=== PATIENT | female | born 1965 | race Caucasian/White ===

== ENCOUNTER 2021-06-03 11:53 | Inpatient (IN) | payer OTHER ==
--- OUTSIDE RECORDS SUMMARY | 2021-06-03 11:56 | XMS REPORT | Continuity of Care Document ---
:[address] [facility] t Address [address] [place] [address] Care Team Providers Name Role Phone Mavis Primary Care Physician Problems Condition Condition Condition Status Onset Resolution Last Treating Co mments Source Name Details Category Date Date Treatment Clinician Date R51 - Diagnosis Active 2015-102016-10-30 Mem oria HEADACHE 2-02 16:21:00 l I10 - R51 - 00:01: [place] ESSENTIAL HEADACHE 00 (PRIMARY) I10 - ESSENTIAL (PRIMARY) Active 09/19/2016 PRIYA [place] Allergies, Adverse Reactions, Alerts This patient has no known allergies or adverse reactions. Social History Social Habit Start Date Stop Date Quantity Comments Source Sex Assigned At [address] 1965 [facility] 00:00:00 00:00:00 Smoking Status Start Date Stop Date Source Unknown if ever smoked [facility] Medications This patient has no known medications. Procedures This patient has no known procedures. Plan of Care Planned Activity Planned Date Details Comments Source Future Scheduled Test INFLUENZA VACCINE [code [facility] = INFLUENZA VACCINE] Future Scheduled Test COVID-19 VACCINE (1) [facility] [code = COVID-19 VACCINE (1)] Future Scheduled Test Hepatitis C screening [facility] (procedure) [code = 774900946] Future Scheduled Test Screening for malignant [facility] neoplasm of cervix (procedure) [code = 287236946] Future Scheduled Test BREAST CANCER SCREENING [facility] [code = BREAST CANCER SCREENING] Future Scheduled Test COLONOSCOPY SCREENING [facility] [code = COLONOSCOPY SCREENING] Future Scheduled Test SHINGLES VACCINES (#1) [facility] [code = SHINGLES VACCINES (#1)] Encounters Start End Encounter Admission Attending Care Care Encounter Source Date/Time Date/Time Type Type Clinicians Facility Department ID 2017-04-06 2017-04-06 Outpatient IE [id number] 10:15:00 10:15:00 06 mandy Vann 2017-01-19 2017-01-19 Outpatient [facility] [id number] 10:30:00 10:30:00 05 mandy Vann 2016-09-19 2016-09-19 Outpatient MHIE IE [id number] [facility] 09:45:00 09:45:00 04 mandy Vann 2016-09-15 2016-09-15 Outpatient MHIE IE [id number] 15:00:00 15:00:00 03 mandy Vann 2016-04-28 2016-04-28 Outpatient [facility]IE [id number] [facility] 11:00:00 11:00:00 02 mandy Vann Results This patient has no known results.
--- NOTE | 2021-06-03 12:37 | RAD REPORT ---
EXAM DESCRIPTION: RAD - Chest Single View - 06/03/2021 12:30 pm CLINICAL HISTORY: covid +;COPD COMPARISON: Chest Pa And Lat (2 Views) dated 08/16/2019; Chest Single View dated 08/23/2017; CHEST SI NGLE VIEW dated 09/29/2012; CHEST SINGLE VIEW dated 12/27/2010 FINDINGS: Mild to moderate patchy bilateral airspace disease. The heart size is within normal limits .No acute osseous abnormality. No significant pleural effusions or pneumothorax. IMPRESSION: Mild to moderate patchy bilateral airspace disease concerning for multifocal pneumonia, including Covid-19 pneumonia.
[2021-06-03] MEDS ORDERED: ACETAMINOPHEN 500 MG TAB ONE (16:37)
[2021-06-03] MEDS ORDERED: METHYLPREDNISOLONE 125 MG INJ ONE (16:37)
[2021-06-03 16:50] LABS: Absolute Lymphocytes (CBC) 0.6 K/uL (0.7-4.9); Basophils % 0.2 % (0-1.3); Hematocrit 41.1 % (36.0-45.0); Lymphocytes % 8.5 % (15.3-44.8); MPV 8.6 fL (7.6-11.3); RBC Red Blood Cell Count 4.57 M/uL (3.86-4.86)
[2021-06-03 16:51] LABS: Protime INR 1.23
[2021-06-03 17:03] LABS: ALT/SGPT 38 U/L (12-78); AST/SGOT 46 U/L (15-37); Albumin 3.1 g/dL (3.4-5.0); Alkaline Phosphatase 97 U/L (45-117); BUN Blood Urea Nitrogen 10 mg/dL (7-18); Bicarbonate 29 mmol/L (21-32); Bilirubin Direct 0.1 mg/dL (0-0.2); Bilirubin Total 0.4 mg/dL (0.2-1.0); Ferritin 1292.7 ng/mL (8-388); Glucose Level 102 mg/dL (74-106); Lipase 84 U/L (73-393); Potassium 4.1 mmol/L (3.5-5.1); Protein, Total 7.6 g/dL (6.4-8.2); Sodium Level 138 mmol/L (136-145); Troponin (Emerg Dept Use Only) < 0.02 ng/mL (0.0-0.045)
[2021-06-03] MEDS ORDERED: NA CHLORIDE 0.9% 500 ML ONE (17:22)
--- NOTE | 2021-06-03 17:59 | EDPHYS ---
Physician Documentation [facility] Name: Florecita Stahl Age: 56 yrs Sex: Female : 1965 Arrival Date: 06/03/2021 Time: 12:00 Bed 15 Private MD: Sina [facility] ED Physician Gurjit Andino HPI: 06/03 14:58 This 56 yrs old Female presents to ER via Ambulatory with complaints of pm1 COVID+, Breathing Difficulty. 14:58 The patient has shortness of breath that occurred at home. Onset: The symptoms/episode pm1 began/occurred Patient with onset of Covid symptoms May 21. Patient with worsening shortness of breath onset 4 days ago. Duration: The symptoms are continuous, and are steadily getting worse. The patient's shortness of breath is aggravated by exertion, is alleviated by Using her father's supplemental oxygen for the past 2 days. Associated signs and symptoms: Pertinent positives: chest pain, hemoptysis, nausea, Diarrhea, Pertinent negatives: vomiting. Severity of symptoms: in the emergency department the symptoms are worse. The patient has not experienced similar symptoms in the past. Sent to the ER today for chest x-ray due to shortness of breath and hemoptysis. 4 days ago and onset of shortness of breath PCP prescribed patient azithromycin. Historical: - Allergies: 12:07 Morphine; ss - PMHx: 12:07 Hypertension; ss - Immunization history:: Client reports having NOT received the Covid vaccine. - Social history:: Smoking status: Patient denies any tobacco usage or history of. ROS: 14:58 Back: Negative for injury and pain, MS/Extremity: Negative for injury and deformity, pm1 Skin: Negative for injury, rash, and discoloration, Neuro: Negative for headache, weakness, numbness, tingling, and seizure. 14:58 Constitutional: Positive for poor PO intake, For the past 3 days. 14:58 Cardiovascular: Positive for chest pain, Palpitations with exertion. 14:58 Respiratory: Positive for cough, hemoptysis, shortness of breath. 14:58 Abdomen/GI: Positive for nausea, diarrhea, Negative for abdominal pain, vomiting. 14:58 All other systems are negative. Exam: 14:58 Constitutional: This is a well developed, well nourished patient who is awake, alert, pm1 and in no acute distress. Head/Face: Normocephalic, atraumatic. 14:58 Back: No spinal tenderness. No costovertebral tenderness. Full range of motion. Skin: Warm, dry with normal turgor. Normal color with no rashes, no lesions, and no evidence of cellulitis. MS/ Extremity: Pulses equal, no cyanosis. Neurovascular intact. Full, normal range of motion. 14:58 Eyes: Exam is negative for acute changes, Extraocular movements: no acute changes, Conjunctiva: no acute changes, no injection. 14:58 ENT: Exam is negative for acute changes, Mouth: Lips: normal, Oral mucosa: normal, pink and intact, moist. 14:58 Respiratory: the patient does not display signs of respiratory distress, Respirations: normal, Breath sounds: decreased breath sounds, are scattered, Patient on supplemental oxygenation with nasal cannula. 14:58 Abdomen/GI: Exam negative for acute changes, Inspection: abdomen appears normal, Palpation: abdomen is soft and non-tender, in all quadrants. 14:58 Neuro: Exam negative for acute changes, Orientation: is normal, Mentation: is normal, Motor: is normal, moves all fours. Vital Signs: 12:06 BP 176 / 104; Pulse 89; Resp 26; Temp 97.6(TE); Pulse Ox 88% on R/A; Weight 81.65 kg; ss Height 5 ft. 3 in. (160.02 cm); Pain 8/10; 17:05 BP 197 / 91; Pulse 84; Resp 22; Temp 100.1; Pulse Ox 92% on 2 lpm NC; ll1 17:19 Pulse Ox 94% on 3 lpm NC; ll1 19:03 BP 178 / 91; Pulse 81; Resp 22; Pulse Ox 94% on 3 lpm NC; ll1 12:06 Body Mass Index 31.89 (81.65 kg, 160.02 cm) ss MDM: 14:54 Patient medically screened. pm1 14:57 Data reviewed: vital signs. pm1 17:41 Data interpreted: Pulse oximetry: on 3L(s) per nasal canula, is 95 %. Interpretation: pm1 acceptable. 17:57 ED course: Christa the patient with Donaldo Dia whom accepted the patient to Dr. Sole mar service. . 06/03 14:25 Order name: OSWALD pm06/03 14:25 Order name: Blood Culture Adult (2) pm1 06/03 14:25 Order name: C-Reactive Protein; Complete Time: 17:05 pm1 06/03 14:25 Order name: CBC with Diff; Complete Time: 17:00 pm1 06/03 14:25 Order name: D-Dimer; Complete Time: 17:42 pm1 06/03 14:25 Order name: Ferritin; Complete Time: 17:05 pm1 06/03 14:25 Order name: Flu; Complete Time: 17:16 pm1 06/03 14:25 Order name: LFT's; Complete Time: 17:05 pm1 06/03 14:25 Order name: Lactate; Complete Time: 17:00 pm1 06/03 14:25 Order name: Lipase; Complete Time: 17:05 pm1 06/03 14:25 Order name: PT-INR; Complete Time: 17:42 pm1 06/03 14:25 Order name: Procalcitonin; Complete Time: 17:42 pm1 06/03 14:25 Order name: Ptt, Activated; Complete Time: 17:42 pm1 06/03 14:25 Order name: Strep; Complete Time: 17:16 pm1 06/03 14:25 Order name: Troponin (emerg Dept Use Only); Complete Time: 17:05 pm1 06/03 14:25 Order name: Urine Microscopic Only pm1 06/03 14:26 Order name: Basic Metabolic Panel; Complete Time: 17:05 EDMS 06/03 17:14 Order name: Throat Culture EDMS 06/04 02:46 Order name: D-Dimer EDMS 06/04 02:47 Order name: CBC with Automated Diff EDMS 06/04 03:13 Order name: Comprehensive Metabolic Panel EDMS 06/04 03:13 Order name: Lipid Profile EDMS 06/04 03:13 Order name: C-Reactive Protein EDMS 06/04 03:13 Order name: T4 Free EDMS 06/04 03:13 Order name: Magnesium EDMS 06/04 03:13 Order name: Thyroid Stimulating Hormone EDMS 06/04 03:13 Order name: Ferritin EDMS 06/04 03:21 Order name: Manual Differential EDMS 06/04 10:35 Order name: Urinalysis EDMS 06/04 11:15 Order name: Urine Microscopic Only EDMS 06/03 12:11 Order name: XRAY Chest (1 view); Complete Time: 14:01 ss 06/03 14:25 Order name: EKG; Complete Time: 14:26 pm1 06/03 14:25 Order name: Cardiac monitoring; Complete Time: 19:03 pm1 06/03 14:25 Order name: Droplet/Contact Precautions; Complete Time: 16:56 pm1 06/03 14:25 Order name: EKG - Nurse/Tech; Complete Time: 19:38 pm1 06/03 14:25 Order name: IV Start; Complete Time: 16:56 pm1 06/03 14:25 Order name: Labs collected and sent; Complete Time: 16:56 pm1 06/03 14:25 Order name: O2 Per Protocol; Complete Time: 16:56 pm1 06/03 14:25 Order name: O2 Sat Monitoring; Complete Time: 16:56 pm1 06/03 17:43 Order name: CT Chest For PE Angio; Complete Time: 18:43 jmm Administered Medications: 15:58 CANCELLED (Physician Discretion): Tylenol 1000 mg PO once pm1 16:26 Drug: SOLU-Medrol (methylPrednisoLONE) 125 mg Route: IVP; Site: left antecubital; ll1 17:50 Follow up: Response: No adverse reaction ll1 16:26 Drug: Tylenol 1000 mg Route: PO; ll1 17:50 Follow up: Response: No adverse reaction ll1 17:04 Drug: NS 0.9% 500 ml Route: IV; Rate: bolus; Site: left antecubital; ll1 17:49 Follow up: Response: No adverse reaction; IV Status: Completed infusion; IV Intake: ll1 500ml 17:49 Drug: Aspirin 325 mg Route: PO; ll1 18:17 Follow up: Response: No adverse reaction; RASS: Alert and Calm (0) ll1 19:41 Drug: Lisinopril 20 mg Route: PO; ms4 19:41 Follow up: Response: No adverse reaction ms4 06/04 03:52 Drug: Lopressor (metoprolol TARTRATE) 50 mg Route: PO; ms4 22:37 Follow up: Response: No adverse reaction bs2 Disposition Summary: 06/03/21 17:58 Hospitalization Ordered Hospitalization Status: Inpatient Admission jmm Provider: Leo Whipple Condition: Stable jmm Problem: new jmm Symptoms: are unchanged [facility] Bed/Room Type: Standard [facility] Location: Telemetry/MedSurg (Inpatient)(06/04/21 20:26) Room Assignment: 422(06/04/21 20:26) Diagnosis - COVID -19, Hypoxia [facility] Forms: - Medication Reconciliation Form jmm - SBAR form [facility] Addendum: 06/06/2021 07:10 Co-signature as Attending Physician, Gurjit Andino I agree with the assessment and plan s p3 of care. Signatures: Dispatcher [employer] EDMS Marielena Swift RN RN Bere Lock RN RN dw Abdulaziz Mcleod PA PA [facility] Virginia Cuevas RN RN ss Donaldo Dia, LAVENDER FARM WORKER-C [employer]ER FARM WORKER-Cla1 Som Holt, [employer] TRADER [employer] TRADER pm1 Kenia Torres RN RN ll1 Gurjit Andino sp3 Charisma Mendez RN RN ms4 Courtney Sanchez RN bs2 Corrections: (The following items were deleted from the chart) 06/03 15:58 15:57 Tylenol 1000 mg PO once ordered. pm1 pm1 19:50 17:58 Telemetry/MedSurg (Inpatient) [facility] 19:50 17:58 [facility] 06/04 20:26 06/03 19:50 [facility] ER HOLD [facility] 06/04 20:26 06/03 19:50 ERHOLD- [facility]
--- NOTE | 2021-06-03 17:59 | ER ---
Nurse's Notes [facility] Name: Florecita Stahl Age: 56 yrs Sex: Female : 1965 Arrival Date: 06/03/2021 Time: 12:00 Bed 15 Private MD: Matthias Andino Diagnosis: COVID -19, Hypoxia Presentation: 06/03 12:06 Chief complaint: Patient states: "My doctor sent me over here to get a chest XRAY ss because I have covid and I'm coughing up chunks of blood.". Coronavirus screen: Client presents with at least one sign or symptom that may indicate coronavirus-19. Ebola Screen: Patient denies exposure to infectious person. Patient denies travel to an Ebola-affected area in the 21 days before illness onset. Initial Sepsis Screen: Does the patient meet any 2 criteria? No. Patient's initial sepsis screen is negative. Does the patient have a suspected source of infection? No. Patient's initial sepsis screen is negative. Risk Assessment: Do you want to hurt yourself or someone else? Patient reports no desire to harm self or others. Onset of symptoms was May 21, 2021. 12:06 Method Of Arrival: Ambulatory ss 12:06 Acuity: ISAIAH 2 ss Historical: - Allergies: 12:07 Morphine; ss - PMHx: 12:07 Hypertension; ss - Immunization history:: Client reports having NOT received the Covid vaccine. - Social history:: Smoking status: Patient denies any tobacco usage or history of. Screenin:05 Abuse screen: Denies threats or abuse. Nutritional screening: No deficits noted. ll1 Tuberculosis screening: No symptoms or risk factors identified. Fall Risk IV access (20 points). Gait- Weak (10 pts.). Total Trammell Fall Scale indicates Low Risk Score (25-44 pts). Fall prevention measures have been instituted. Side Rails Up X 2 Frequent Obs/Assesments occuring As available Patient and Family Educated on Fall Prevention Program and strategies. Assessment: 17:05 General: Appears ill, Behavior is calm, cooperative, appropriate for age. Pain: ll1 Complains of pain in back Pain currently is 9 out of 10 on a pain scale. Quality of pain is described as aching. Neuro: No deficits noted. Cardiovascular: Heart tones S1 S2 Capillary refill < 3 seconds Clubbing of nail beds is absent Patient's skin is warm and dry. Rhythm is regular. Respiratory: Airway is patent Trachea midline Respiratory effort is even, labored, Respiratory pattern is regular, tachypnea Breath sounds are diminished bilaterally. the patient has mild shortness of breath. GI: No deficits noted. 18:05 Reassessment: No changes from previously documented assessment. Patient and/or family ll1 updated on plan of care and expected duration. Pain level reassessed. Patient is alert, oriented x 3, equal unlabored respirations, skin warm/dry/pink. Vital Signs: 12:06 BP 176 / 104; Pulse 89; Resp 26; Temp 97.6(TE); Pulse Ox 88% on R/A; Weight 81.65 kg; ss Height 5 ft. 3 in. (160.02 cm); Pain 8/10; 17:05 BP 197 / 91; Pulse 84; Resp 22; Temp 100.1; Pulse Ox 92% on 2 lpm NC; ll1 17:19 Pulse Ox 94% on 3 lpm NC; ll1 19:03 BP 178 / 91; Pulse 81; Resp 22; Pulse Ox 94% on 3 lpm NC; ll1 12:06 Body Mass Index 31.89 (81.65 kg, 160.02 cm) ss ED Course: 12:00 Patient arrived in ED. mr 12:00 Matthias Andino DO is Private Physician. mr 12:07 Triage completed. ss 12:07 Arm band placed on left wrist. ss 12:30 XRAY Chest (1 view) In Process Unspecified. EDMS 12:45 X-ray completed. md1 12:45 Note: Pt has family member (father) in room 12. Per [place] in triage, OK'd to allow md1 patient to wait in family members room for the duration of her wait from the lobby. . 14:24 Som Holt, HILARIO is PHCP. pm1 14:24 Gurjit Andino is Attending Physician. pm1 16:30 Inserted saline lock: 20 gauge in left antecubital area, using aseptic technique. Blood ll1 collected. 16:56 Kenia Torres, JOSLYN is Primary Nurse. ll1 17:05 Patient has correct armband on for positive identification. Bed in low position. Call ll1 light in reach. Side rails up X 1. child support case officer on. Pulse ox on. NIBP on. 17:41 PHCP role handed off by Som Holt NP [facility] 17:41 Abdulaziz Mcleod PA is PHCP. [facility] 17:57 Leo Whipple MD is Hospitalizing Provider. [facility] 18:26 CT Chest For PE Angio In Process Unspecified. EDMS 19:30 Primary Nurse role handed off by Kenia Torres RN mw2 06/04 22:32 Courtney Sanchez, JOSLYN is Primary Nurse. bs2 Administered Medications: 06/03 15:58 CANCELLED (Physician Discretion): Tylenol 1000 mg PO once pm1 16:26 Drug: SOLU-Medrol (methylPrednisoLONE) 125 mg Route: IVP; Site: left antecubital; ll1 17:50 Follow up: Response: No adverse reaction ll1 16:26 Drug: Tylenol 1000 mg Route: PO; ll1 17:50 Follow up: Response: No adverse reaction ll1 17:04 Drug: NS 0.9% 500 ml Route: IV; Rate: bolus; Site: left antecubital; ll1 17:49 Follow up: Response: No adverse reaction; IV Status: Completed infusion; IV Intake: ll1 500ml 17:49 Drug: Aspirin 325 mg Route: PO; ll1 18:17 Follow up: Response: No adverse reaction; RASS: Alert and Calm (0) ll1 19:41 Drug: Lisinopril 20 mg Route: PO; ms4 19:41 Follow up: Response: No adverse reaction ms4 06/04 03:52 Drug: Lopressor (metoprolol TARTRATE) 50 mg Route: PO; ms4 22:37 Follow up: Response: No adverse reaction bs2 Intake: 06/03 17:49 IV: 500ml; Total: 500ml. ll1 Outcome: 17:58 Decision to Hospitalize by Provider. [facility] 06/04 23:28 Patient left the ED. mw2 Signatures: Dispatcher [employer] EDMS Abdulaziz Mcleod PA PA [facility] FieldsLizzette Ruthann Gallegosby, RN RN ss Som Holt NP MECHANICAL APPLICATIONS ENGINEER pm1 Raghu Reid mw2 Charisma Card md1 Kenia Torres RN RN ll1 Courtney Sanchez RN RN bs2 Vanessa, Charisma, RN RN ms4 Corrections: (The following items were deleted from the chart) 06/03 12:49 12:46 pt has family member (father) in Room 12. Per [place] in triage, OK'd to put pt in md1 room with her family member for the duration of her wait from the lobby. md1
[2021-06-03] MEDS ORDERED: ASPIRIN 325 MG TAB ONE (18:05)
--- NOTE | 2021-06-03 18:37 | RAD REPORT ---
EXAM DESCRIPTION: CT - Chest For Pe Angio - 06/03/2021 6:26 pm CLINICAL HISTORY: Chest pain. covid, hemoptysis COMPARISON: CTANGIO CHEST FOR PE dated 03/22/2008 TECHNIQUE: CT angiogram of the pulmonary arteries was performed with MIP. All CT scans are performed using dose optimization technique as appropriate and may include automated exposure control or mA/KV adjustment according to patient size. FINDINGS: No evidence of pulmonary thromboembolism. No acute aortic finding demonstrated. Moderate to severe confluent bilateral alveolar lung opacities are present, greatest in the periphery and lower lobes most compatible with underlying COVID-19 infection. No significant pericardial or pleural fluid. No concerning bony finding. IMPRESSION: No evidence of pulmonary thromboembolism. Moderate to severe COVID-19 infection pulmonary findings.
--- NOTE | 2021-06-03 19:00 | P.HP ---
Certification for Inpatient Patient admitted to: Inpatient With expected LOS: >2 Midnights Patient will require the following post-hospital care: None Practitioner: I am a practitioner with admitting privileges, knowledge of patient current condition, hospital course, and medical plan of care. Services: Services provided to patient in accordance with Admission requirements found in Title 42 Section 412.3 of the Code of Federal Regulations Patient History Date of Service: 06/03/21 Reason for admission: COVID-19 pneumonia History of Present Illness: 56-year-old female with history of hypertension presents the emergency department for shortness of breath, hemoptysis. Patient reports testing positive for Covid on 05/27/2021, began with mild hemoptysis on 05/31/2021. Patient not vaccinated. Patient reports increasing shortness of breath over the course of last few days noted to be hypoxic to 64% on room air at home. Patient was evaluated in the emergency department, labs were significant for D-dimer 1464 ferritin 1292 C-reactive protein 329. Patient was given IV steroids had CT PE protocol which was negative for pulmonary bruising demonstrated moderate COVID-19 pneumonia. Patient requiring nasal cannula around 4 to 5 L at this time to maintain saturations greater 90%. ED provider wishes to admit for further evaluation and management. Allergies morphine Adverse Reaction (Severe, Verified 09/29/12 16:25) Shortness of breath Home Medications: Amlodipine Besylate [Norvasc] 5 mg PO DAILY #30 tablet 09/30/12 Meclizine HCl [Antivert] 25 mg PO Q8HP PRN #30 tablet 09/30/12 Pravastatin [Pravachol*] 09/30/12 Amox/Clavulanate [Augmentin 875-125 Tab*] 1 tab PO BID #0 tab 10/02/12 Clonazepam [Klonopin] 0.5 mg PO Q12H PRN #0 tablet 10/02/12 Methylprednisolone [Medrol] 2 mg PO DAILY #0 tablet 10/02/12 - Past Medical/Surgical History Diabetic: No -: Hypertension -: x2 Psychosocial/ Personal History: Lives with father, . - Family History Father -: Lung disease - Social History Smoking Status: Never smoker Alcohol use: No CD- Drugs: No Caffeine use: Yes Place of Residence: Home Review of Systems 10-point ROS is otherwise unremarkable Respiratory: Cough, Dry, Shortness of Breath, Hemoptysis, As per HPI Physical Examination - Physical Exam General: Alert, In no apparent distress, Oriented x3 HEENT: Atraumatic, PERRLA, Mucous membr. moist/pink, EOMI, Sclerae nonicteric Neck: Supple, 2+ carotid pulse no bruit, No LAD, Without JVD or thyroid abnormality Respiratory: Diminished, Other (Dyspnea, tachypnea) Cardiovascular: Regular rate/rhythm, Normal S1 S2 Capillary refill: <2 Seconds Gastrointestinal: Normal bowel sounds, No tenderness Musculoskeletal: No tenderness Integumentary: No rashes Neurological: Normal gait, Normal speech, Normal strength at 5/5 x4 extr, Normal tone, Normal affect Lymphatics: No axilla or inguinal lymphadenopathy - Studies Laboratory Data (last 24 hrs) 06/03/21 16:10: PT 14.2 H, INR 1.23, APTT 30.8 06/03/21 16:10: WBC 6.80, Hgb 14.2, Hct 41.1, Plt Count 279 06/03/21 16:10: Sodium 138, Potassium 4.1, BUN 10, Creatinine 0.59, Glucose 102, Total Bilirubin 0.4, AST 46 H, ALT 38, Alkaline Phosphatase 97, Lipase 84 Microbiology Data (last 24 hrs): 06/03/21 16:10 Throat Group A Streptococcus Rapid Screen - Final 06/03/21 16:10 Nasopharnyx Influenza Type A Antigen Screen - Final 06/03/21 16:10 Nasopharnyx Influenza Type B Antigen Screen - Final Assessment and Plan - Plan Assessment: Acute hypoxic respiratory failure secondary to COVID-19 pneumonia complicated with mild hemoptysis Hypertension Plan: Acute hypoxic respiratory failure secondary to COVID-19 pneumonia complicated with mild hemoptysis: Continue with IV steroids, ivermectin, baricitinib, supplements. Pulmonology consulted, supplemental oxygen as needed. Patient not vaccinated. CT negative for PE, will continue with Lovenox 40 subcu twice daily and advance to full anticoagulation as tolerated in regards to hemoptysis. Appreciate further input from pulmonology. Hypertension: Continue medications. Adjust as necessary patient reports blood pressure runs very high at home. Will continue lisinopril 20 mg daily which is what patient reports that she takes at home, may need dose adjustment or additional medications. DVT PPX: Lovenox 40 subcu twice daily Code status: Full Discharge Plan: Home Plan to discharge in: Greater than 2 days - Advance Directives Does patient have a Living Will: No Does patient have a Durable POA for Healthcare: No - Code Status/Comfort Care Code Status Assessed: Yes (Full code) Critical Care: No Time Spent Managing Pts Care (In Minutes): 55
[2021-06-03] MEDS ORDERED: lisinopriL 20 MG TAB ONE (20:02)
[2021-06-03 21:43] VITALS: BMI 29.9
[2021-06-03] MEDS: METHYLPREDNISOLONE 40 MG INJ IV SCH (21:43)
[2021-06-03] MEDS ORDERED: MELATONIN 5 MG TABLET PO PRN (21:43)
[2021-06-03] MEDS ORDERED: BENZONATATE 100 MG CAP PO PRN (21:43)
[2021-06-03] MEDS: ENOXAPARIN 40 MG/0.4 ML SQ SCH (21:43)
[2021-06-03] MEDS: ASCORBIC ACID 500 MG TABLET PO SCH (21:43)
[2021-06-03 22:06] LABS: Urine Bacteria <20 /HPF (<20); Urine RBC <5 /HPF (NONE SEEN)
[2021-06-03] MEDS: HYDRALAZINE HCL 20 MG/ML VIAL IV PRN (22:53)
[2021-06-03] MEDS ORDERED: ENOXAPARIN 40 MG/0.4 ML SQ ONE (23:08)
[2021-06-03] MEDS ORDERED: ASCORBIC ACID 500 MG TABLET ONE (23:08)
[2021-06-03] MEDS ORDERED: METHYLPREDNISOLONE 40 MG INJ ONE (23:08)
[2021-06-03] MEDS ORDERED: HYDRALAZINE HCL 20 MG/ML VIAL ONE (23:19)
[2021-06-04 02:40] LABS: Absolute Lymphocytes (CBC) 0.6 K/uL (0.7-4.9); Basophils % 0.2 % (0-1.3); Hematocrit 41.2 % (36.0-45.0); Lymphocytes % 10.1 % (15.3-44.8); MPV 8.7 fL (7.6-11.3); RBC Red Blood Cell Count 4.54 M/uL (3.86-4.86)
[2021-06-04 03:12] LABS: ALT/SGPT 40 U/L (12-78); AST/SGOT 38 U/L (15-37); Albumin 2.6 g/dL (3.4-5.0); Alkaline Phosphatase 91 U/L (45-117); BUN Blood Urea Nitrogen 12 mg/dL (7-18); Bicarbonate 28 mmol/L (21-32); Bilirubin Total 0.3 mg/dL (0.2-1.0); Ferritin 1267.3 ng/mL (8-388); Glucose Level 202 mg/dL (74-106); HDL Cholesterol 39 mg/dL (40-60); LDL Cholesterol, Calculated 141 (<130); Magnesium 2.5 mg/dL (1.8-2.4); Sodium Level 142 mmol/L (136-145); Thyroid Stimulating Hormone 0.565 uIU/mL (0.360-3.740)
[2021-06-04 03:21] LABS: Blood Morphology Comment NOT SEEN (NOT SEEN); Platelet Estimate ADEQ
--- NOTE | 2021-06-04 06:53 | P.PN ---
Subjective Date of Service: 06/04/21 Chief Complaint: COVID-19 pneumonia Subjective: No new changes (4+ L NC, significantly elevated inflammatory markers. feels about the same. continues with some diarrhea) Review of Systems 10-point ROS is otherwise unremarkable Physical Examination - Vital Signs Temperature: 98.4 F Blood Pressure: 158/78 Pulse: 74 Respirations: 18 Pulse Ox (%): 91 - Studies Laboratory Data (last 24 hrs) 06/03/21 16:10: PT 14.2 H, INR 1.23, APTT 30.8 06/03/21 16:10: WBC 6.80, Hgb 14.2, Hct 41.1, Plt Count 279 06/03/21 16:10: Sodium 138, Potassium 4.1, BUN 10, Creatinine 0.59, Glucose 102, Total Bilirubin 0.4, AST 46 H, ALT 38, Alkaline Phosphatase 97, Lipase 84 Microbiology Data (last 24 hrs): 06/03/21 16:10 Throat Group A Streptococcus Rapid Screen - Final 06/03/21 16:10 Nasopharnyx Influenza Type A Antigen Screen - Final 06/03/21 16:10 Nasopharnyx Influenza Type B Antigen Screen - Final Assessment & Plan Physician Review Additional Text: Physical Exam General: AAOx3, NAD HEENT: Normal conjunctiva, sclera anicteric Respiratory: Slight tachypnea, nonlabored respirations on 6 L nasal cannula Cardiovascular: Regular rate/rhythm, Normal S1 S2, no edema Gastrointestinal: Soft, nontender, nondistended Musculoskeletal: No joint tenderness Integumentary: No rashes Problem list Acute hypoxic respiratory failure secondary to COVID-19 pneumonia complicated with mild hemoptysis Hypertension Continue with IV steroids, ivermectin, supplements. Patient was significantly elevated CRP, if requires more oxygen will qualify for baricitinib Pulmonology consulted, supplemental oxygen as needed. Patient not vaccinated. CT negative for PE continue with Lovenox 40 subcu twice daily and advance to full anticoagulation as tolerated in regards to hemoptysis Continue home antihypertensives -lisinopril 20 mg daily VTE: Lovenox 40 subcu twice daily Code status: Full Dispo: anticipate dc home with O2 in ~3-4 days Time Spent Managing Pts Care (In Minutes): 35
[2021-06-04] MEDS ORDERED: THIAMINE HCL 100 MG TABLET ONE (08:00)
[2021-06-04] MEDS ORDERED: ASPIRIN EC 81 MG TAB PO ONE (08:00)
[2021-06-04] MEDS ORDERED: ASCORBIC ACID 500 MG TABLET ONE ×2 (08:00→21:14)
[2021-06-04] MEDS ORDERED: [UNRECOGNIZED DRUG - REMARK] XX ONE (08:00)
[2021-06-04] MEDS ORDERED: VITAMIN D 1000 UNIT TAB ONE (08:01)
[2021-06-04] MEDS ORDERED: METHYLPREDNISOLONE 40 MG INJ ONE ×3 (08:01→21:14)
[2021-06-04] MEDS ORDERED: ZINC SULFATE 220 MG CAP ONE (08:01)
[2021-06-04] MEDS ORDERED: lisinopriL 20 MG TAB ONE (08:01)
[2021-06-04] MEDS ORDERED: ENOXAPARIN 40 MG/0.4 ML SQ ONE ×2 (08:01→21:14)
[2021-06-04] MEDS: ENOXAPARIN 40 MG/0.4 ML SQ SCH ×2 (08:33→21:00)
[2021-06-04] MEDS: IVERMECTIN 3 MG TABLET PO SCH (08:33)
[2021-06-04] MEDS: lisinopriL 20 MG TAB PO SCH (08:33)
[2021-06-04] MEDS: ASPIRIN EC 81 MG TAB PO SCH (08:33)
[2021-06-04] MEDS: ZINC SULFATE 220 MG CAP PO SCH (08:34)
[2021-06-04] MEDS: VITAMIN D 1000 UNIT TAB PO SCH (08:34)
[2021-06-04] MEDS: ASCORBIC ACID 500 MG TABLET PO SCH ×4 (08:34→21:00)
[2021-06-04] MEDS: THIAMINE HCL 100 MG TABLET PO SCH (08:34)
[2021-06-04] MEDS: METHYLPREDNISOLONE 40 MG INJ IV SCH ×3 (08:34→21:00)
[2021-06-04 10:34] LABS: Urine Appearance CLEAR (Clear); Urine Bilirubin NEGATIVE (Negative); Urine Blood NEGATIVE (Negative); Urine Color YELLOW (Yellow); Urine Glucose NEGATIVE (Negative); Urine Microscopic Reflex ORDER UMIC; Urine Protein 2+ (Negative); Urine Urobilinogen 0.2 mg/dL (0.2-1.0)
[2021-06-04 11:14] LABS: Urine Bacteria <20 /HPF (<20); Urine RBC NONE SEEN /HPF (NONE SEEN)
--- NOTE | 2021-06-04 12:29 | P.CNS ---
Date of Consult: 06/04/21 Reason for Consult: COVID penumonia Chief Complaint: COVID-19 pneumonia History of Present Illness: Age 56 AW COVID pneumonia/SOB and hemoptysis/ REsp failure Allergies morphine Adverse Reaction (Severe, Verified 09/29/12 16:25) Shortness of breath Home Medications: Amlodipine Besylate [Norvasc] 5 mg PO DAILY #30 tablet 09/30/12 Meclizine HCl [Antivert] 25 mg PO Q8HP PRN #30 tablet 09/30/12 Pravastatin [Pravachol*] 09/30/12 Amox/Clavulanate [Augmentin 875-125 Tab*] 1 tab PO BID #0 tab 10/02/12 Clonazepam [Klonopin] 0.5 mg PO Q12H PRN #0 tablet 10/02/12 Methylprednisolone [Medrol] 2 mg PO DAILY #0 tablet 10/02/12 - Past Medical/Surgical History Diabetic: No -: Hypertension -: hyperlipidemia -: x2 Psychosocial/ Personal History: Lives with father, . - Family History Father Medical History: Lung disease - Social History Smoking Status: Never smoker Alcohol use: No CD- Drugs: No Caffeine use: Yes Place of Residence: Home Review of Systems General: Weakness Respiratory: Shortness of Breath Physical Examination Temp Pulse Resp BP Pulse Ox 98.1 F 64 21 H 175/72 H 93 06/04/21 08:00 06/04/21 12:00 06/04/21 12:00 06/04/21 12:00 06/04/21 12:00 General: Alert, In no apparent distress, Oriented x3, Cooperative Laboratory Data (last 24 hrs) 06/03/21 16:10: PT 14.2 H, INR 1.23, APTT 30.8 06/03/21 16:10: WBC 6.80, Hgb 14.2, Hct 41.1, Plt Count 279 06/03/21 16:10: Sodium 138, Potassium 4.1, BUN 10, Creatinine 0.59, Glucose 102, Total Bilirubin 0.4, AST 46 H, ALT 38, Alkaline Phosphatase 97, Lipase 84 - Problems (1) Pneumonia due to COVID-19 virus Current Visit: Yes Status: Acute Plan: age 56 AW resp failure from COVID/ CW present therapy if o2 requirement inc will qualify for Barcitnib/ BP elevated lasix
[2021-06-04] MEDS ORDERED: FUROSEMIDE 20 MG/ 2ML VIAL IV ONE (12:31)
[2021-06-04] MEDS: ACETAMINOPHEN 500 MG TAB PO PRN ×2 (14:30→23:41)
[2021-06-04] MEDS ORDERED: ACETAMINOPHEN 500 MG TAB ONE ×2 (14:42→23:17)
--- NOTE | 2021-06-04 16:56 | EKG ---
Test Date: 2021-06-03 Test Time: 19:24:02 Issuing Operator: CEFERINO MEASUREMENT RESULTS: Intervals: Rate: 77 RI: 134 QRSD: 94 QT: 452 QTc: 511 [place]: P: 56 RI: 134 QRS: 71 T: 59 INTERPRETIVE STATEMENTS: Normal sinus rhythm Prolonged QT Abnormal ECG Compared to ECG 08/23/2017 14:36:25 No significant changes Electronically Signed On 06-04-21 16:53:38 CDT by Higinio Sevilla
[2021-06-04] MEDS: BARICITINIB 2 MG TABLET PO SCH (17:30)
[2021-06-04] MEDS ORDERED: HYDRALAZINE HCL 20 MG/ML VIAL ONE (22:05)
[2021-06-04] MEDS ORDERED: ONDANSETRON 4 MG/2 ML VIAL ONE (23:17)
[2021-06-04] MEDS: ONDANSETRON 4 MG/2 ML VIAL IV PRN (23:41)
[2021-06-05] MEDS: ACETAMINOPHEN 500 MG TAB PO PRN ×2 (03:05→10:13)
[2021-06-05] MEDS ORDERED: LABETALOL 20 MG/4ML SYRINGE IV ONE (04:31)
[2021-06-05 06:07] LABS: Absolute Lymphocytes (CBC) 1.1 K/uL (0.7-4.9); Basophils % 0.1 % (0-1.3); Hematocrit 40.4 % (36.0-45.0); Lymphocytes % 7.4 % (15.3-44.8); MPV 8.7 fL (7.6-11.3); RBC Red Blood Cell Count 4.49 M/uL (3.86-4.86)
--- NOTE | 2021-06-05 06:26 | P.PN ---
Subjective Date of Service: 06/05/21 Chief Complaint: COVID-19 pneumonia Subjective: Improving (feeling better. wants to go home - father has covid and she is concerned nobody is taking care of him, and he can't take care of himself. pt down to 6L NC this morning), Other Review of Systems 10-point ROS is otherwise unremarkable Physical Examination - Vital Signs Temperature: 98 F Blood Pressure: 215/100 Pulse: 74 Respirations: 18 Pulse Ox (%): 94 Assessment & Plan Physician Review Additional Text: Physical Exam General: AAOx3, NAD HEENT: Normal conjunctiva, sclera anicteric Respiratory: nonlabored respirations on 6 L nasal cannula Cardiovascular: Regular rate/rhythm, Normal S1 S2, no edema Gastrointestinal: Soft, nontender, nondistended Musculoskeletal: No joint tenderness Integumentary: No rashes Problem list Acute hypoxic respiratory failure secondary to COVID-19 pneumonia complicated with mild hemoptysis Hypertension Continue with IV steroids, ivermectin, supplements. decrease steroid dose 06/05 Patient was significantly elevated CRP, improving Pulmonology consulted, supplemental oxygen as needed. Patient not vaccinated. CT negative for PE continue with Lovenox 40 subq twice daily and advance to full anticoagulation as tolerated in regards to hemoptysis Continue home antihypertensives -lisinopril 20 mg daily, on metoprolol lasix given as well VTE: Lovenox 40 subcu twice daily Code status: Full Dispo: anticipate dc home with O2 in ~1-2 days Time Spent Managing Pts Care (In Minutes): 40
[2021-06-05 06:33] LABS: ALT/SGPT 83 U/L (12-78); AST/SGOT 57 U/L (15-37); Albumin 2.8 g/dL (3.4-5.0); Alkaline Phosphatase 96 U/L (45-117); BUN Blood Urea Nitrogen 19 mg/dL (7-18); Bicarbonate 29 mmol/L (21-32); Bilirubin Direct < 0.1 mg/dL (0-0.2); Bilirubin Total 0.3 mg/dL (0.2-1.0); Ferritin 1387.2 ng/mL (8-388); Glucose Level 182 mg/dL (74-106); Magnesium 2.4 mg/dL (1.8-2.4); Potassium 3.8 mmol/L (3.5-5.1); Protein, Total 7.2 g/dL (6.4-8.2); Sodium Level 139 mmol/L (136-145)
[2021-06-05] MEDS ORDERED: POTASSIUM CL SA 10 MEQ TAB PO ONE (09:00)
[2021-06-05 09:21] LABS: Blood Morphology Comment NOT SEEN (NOT SEEN); Platelet Estimate ADEQ
[2021-06-05] MEDS: ZINC SULFATE 220 MG CAP PO SCH (10:02)
[2021-06-05] MEDS: METOPROLOL TAR 50 MG TAB PO SCH ×2 (10:02→21:24)
[2021-06-05] MEDS: ASCORBIC ACID 500 MG TABLET PO SCH ×4 (10:02→21:25)
[2021-06-05] MEDS: VITAMIN D 1000 UNIT TAB PO SCH (10:02)
[2021-06-05] MEDS: ASPIRIN EC 81 MG TAB PO SCH (10:02)
[2021-06-05] MEDS: ENOXAPARIN 40 MG/0.4 ML SQ SCH ×2 (10:02→21:25)
[2021-06-05] MEDS: THIAMINE HCL 100 MG TABLET PO SCH (10:03)
[2021-06-05] MEDS: METHYLPREDNISOLONE 40 MG INJ IV SCH ×3 (10:04→21:25)
[2021-06-05] MEDS: lisinopriL 20 MG TAB PO SCH (10:13)
[2021-06-05] MEDS: BARICITINIB 2 MG TABLET PO SCH (10:14)
[2021-06-05] MEDS: ONDANSETRON 4 MG/2 ML VIAL IV PRN (13:40)
[2021-06-05] MEDS: DOCUSATE NA 100 MG CAP PO SCH (21:25)
[2021-06-05] MEDS: HYDRALAZINE HCL 20 MG/ML VIAL IV PRN (22:43)
[2021-06-06] MEDS: ACETAMINOPHEN 500 MG TAB PO PRN ×2 (04:08→10:53)
[2021-06-06 06:13] LABS: Absolute Lymphocytes (CBC) 1.3 K/uL (0.7-4.9); Basophils % 0.2 % (0-1.3); Hematocrit 40.4 % (36.0-45.0); Lymphocytes % 9.5 % (15.3-44.8); MPV 8.7 fL (7.6-11.3); RBC Red Blood Cell Count 4.45 M/uL (3.86-4.86)
[2021-06-06 06:23] LABS: ALT/SGPT 79 U/L (12-78); AST/SGOT 31 U/L (15-37); Albumin 2.7 g/dL (3.4-5.0); Alkaline Phosphatase 97 U/L (45-117); BUN Blood Urea Nitrogen 18 mg/dL (7-18); Bicarbonate 30 mmol/L (21-32); Bilirubin Direct < 0.1 mg/dL (0-0.2); Bilirubin Total 0.4 mg/dL (0.2-1.0); Ferritin 911.3 ng/mL (8-388); Glucose Level 185 mg/dL (74-106); Magnesium 2.7 mg/dL (1.8-2.4); Potassium 4.4 mmol/L (3.5-5.1); Protein, Total 6.8 g/dL (6.4-8.2); Sodium Level 141 mmol/L (136-145)
[2021-06-06 07:13] LABS: Blood Morphology Comment NOT SEEN (NOT SEEN); Platelet Estimate INCR; White Blood Cell Scan OK (OK)
[2021-06-06] MEDS: ENOXAPARIN 40 MG/0.4 ML SQ SCH (08:17)
[2021-06-06] MEDS: VITAMIN D 1000 UNIT TAB PO SCH (08:20)
[2021-06-06] MEDS: IVERMECTIN 3 MG TABLET PO SCH (08:20)
[2021-06-06] MEDS: ZINC SULFATE 220 MG CAP PO SCH (08:20)
[2021-06-06] MEDS: BARICITINIB 2 MG TABLET PO SCH (08:20)
[2021-06-06] MEDS: THIAMINE HCL 100 MG TABLET PO SCH (08:20)
[2021-06-06] MEDS: METOPROLOL TAR 50 MG TAB PO SCH (08:21)
[2021-06-06] MEDS: METHYLPREDNISOLONE 40 MG INJ IV SCH ×2 (08:21→12:49)
[2021-06-06] MEDS: ASCORBIC ACID 500 MG TABLET PO SCH ×2 (08:21→12:45)
[2021-06-06] MEDS: ASPIRIN EC 81 MG TAB PO SCH (08:21)
[2021-06-06] MEDS: lisinopriL 20 MG TAB PO SCH (08:21)
[2021-06-06] MEDS: DOCUSATE NA 100 MG CAP PO SCH (08:21)
[2021-06-06] MEDS ORDERED: TRAMADOL HCL 50 MG TAB PO ONE (10:21)
[2021-06-06] MEDS ORDERED: SOD CHLORIDE 0.65% NASAL SPRAY NAS PRN (10:52)
[2021-06-06] MEDS ORDERED: IBUPROFEN 200 MG TAB PO ONE (11:57)
[2021-06-06] MEDS ORDERED: AMLODIPINE 5 MG TAB PO ONE (12:16)
--- NOTE | 2021-06-06 13:19 | P.DS ---
Admission Date: 06/03/21 Discharge Date: 06/06/21 Disposition: ROUTINE DISCHARGE Discharge Condition: GOOD Reason for Admission: COVID-19 pneumonia Consultations: Pulmonology - Dr. Sim Procedures: CXR (06/03): Mild to moderate patchy bilateral airspace disease. The heart size is within normal limits.No acute osseous abnormality. No significant pleural effusions or pneumothorax. IMPRESSION: Mild to moderate patchy bilateral airspace disease concerning for multifocal pneumonia, including Covid-19 pneumonia. CTA chest (06/03): No evidence of pulmonary thromboembolism. No acute aortic finding demonstrated. Moderate to severe confluent bilateral alveolar lung opacities are present, greatest in the periphery and lower lobes most compatible with underlying COVID- 19 infection. No significant pericardial or pleural fluid. No concerning bony finding. IMPRESSION: No evidence of pulmonary thromboembolism. Moderate to severe COVID-19 infection pulmonary findings. Problem list Acute hypoxic respiratory failure secondary to COVID-19 pneumonia Hypertension Brief History of Present Illness: 56-year-old female with history of hypertension presents the emergency department for shortness of breath, hemoptysis. Patient reports testing positive for Covid on 05/27/2021, began with mild hemoptysis on 05/31/2021. Patient not vaccinated. Patient reports increasing shortness of breath over the course of last few days noted to be hypoxic to 64% on room air at home. Patient was evaluated in the emergency department, labs were significant for D-dimer 1464 ferritin 1292 C-reactive protein 329. Patient was given IV steroids had CT PE protocol which was negative for pulmonary bruising demonstrated moderate COVID-19 pneumonia. Patient requiring nasal cannula around 4 to 5 L at this time to maintain saturations greater 90%. ED provider wishes to admit for further evaluation and management. Hospital Course: Patient had gradual improvement in her symptoms and oxygen requirement with steroids, vitamin supplementation, ivermectin, and baricitinib. Her mild hemoptysis resolved as well. She was weaned down to 3 L nasal cannula. Discharged home to continue steroids, aspirin, vitamin supplementation, oxygen supplementation, and refills were sent for her antihypertensives. Patient was noted to have severe hypertension. She had not refilled her medications in a while. She had improvement with reinitiation of these medications. As noted above, 30-day refills were sent to her pharmacy for her blood pressure medications. She is to follow-up with Dr. Sim in 1 week Follow-up with PCP in 3-5 days Vital Signs/Physical Exam: Physical Exam General: AAOx3, NAD HEENT: Normal conjunctiva, sclera anicteric Respiratory: nonlabored respirations on 3 L nasal cannula Cardiovascular: Regular rate/rhythm, Normal S1 S2, no edema Gastrointestinal: Soft, nontender, nondistended Musculoskeletal: No joint tenderness Integumentary: No rashes Temp Pulse Resp BP Pulse Ox 97.8 F 68 18 188/88 H 96 06/06/21 08:00 06/06/21 12:48 06/06/21 08:00 06/06/21 12:48 06/06/21 08:00 Laboratory Data at Discharge: WBC 13.60 K/uL (4.3-10.9) H 06/06/21 05:31 Hgb 13.8 g/dL (12.0-15.0) 06/06/21 05:31 Hct 40.4 % (36.0-45.0) 06/06/21 05:31 Plt Count 460 K/uL (152-406) H 06/06/21 05:31 PT 14.2 SECONDS (9.5-12.5) H 06/03/21 16:10 INR 1.23 06/03/21 16:10 APTT 30.8 SECONDS (24.3-36.9) 06/03/21 16:10 Sodium 141 mmol/L (136-145) 06/06/21 05:36 Potassium 4.4 mmol/L (3.5-5.1) 06/06/21 05:36 BUN 18 mg/dL (7-18) 06/06/21 05:36 Creatinine 0.65 mg/dL (0.55-1.3) 06/06/21 05:36 Glucose 185 mg/dL (74-106) H 06/06/21 05:36 Magnesium 2.7 mg/dL (1.8-2.4) H 06/06/21 05:36 Total Bilirubin 0.4 mg/dL (0.2-1.0) 06/06/21 05:36 AST 31 U/L (15-37) 06/06/21 05:36 ALT 79 U/L (12-78) H 06/06/21 05:36 Alkaline Phosphatase 97 U/L (45-117) 06/06/21 05:36 Triglycerides 151 mg/dL (<150) H 06/04/21 02:01 Cholesterol 210 mg/dL (<200) H 06/04/21 02:01 HDL Cholesterol 39 mg/dL (40-60) L 06/04/21 02:01 Cholesterol/HDL Ratio 5.38 06/04/21 02:01 Lipase 84 U/L (73-393) 06/03/21 16:10 Home Medications: Ascorbic Acid [Vitamin C*] 500 mg PO QID 30 Days #120 tablet 06/06/21 Aspirin [Aspirin EC 81 MG] 2 tab PO DAILY 30 Days #60 tablet. 06/06/21 Benzonatate [Tessalon Perle*] 100 mg PO TID PRN 7 Days #21 cap 06/06/21 Carvedilol [Coreg] 25 mg PO BID 30 Days #60 tablet 06/06/21 Cholecalciferol (Vitamin D3) [Vitamin D 1000 Iu Tab*] 4,000 unit PO DAILY 30 Days #120 tab 06/06/21 Lisinopril [Zestril] 40 mg PO DAILY 30 Days #30 tablet 06/06/21 hydroCHLOROthiazide [Hydrochlorothiazide] 25 mg PO DAILY 30 Days #30 tablet 06/06/21 predniSONE [Prednisone] 20 mg PO SEECOM 14 Days #21 tablet 06/06/21 New Medications: Aspirin [Aspirin EC 81 MG] 2 tab PO DAILY 30 Days #60 tablet. Carvedilol [Coreg] 25 mg PO BID 30 Days #60 tablet hydroCHLOROthiazide [Hydrochlorothiazide] 25 mg PO DAILY 30 Days #30 tablet predniSONE [Prednisone] 20 mg PO SEECOM 14 Days #21 tablet Benzonatate [Tessalon Perle*] 100 mg PO TID PRN 7 Days #21 cap PRN Reason: Cough Ascorbic Acid [Vitamin C*] 500 mg PO QID 30 Days #120 tablet Cholecalciferol (Vitamin D3) [Vitamin D 1000 Iu Tab*] 4,000 unit PO DAILY 30 Days #120 tab Lisinopril [Zestril] 40 mg PO DAILY 30 Days #30 tablet Physician Discharge Instructions: You are found to have COVID-19 pneumonia. He had improvement with steroids, baricitinib, vitamin supplementation, and oxygen supplementation You are discharged home to continue oral steroids, vitamin supplementation, oxygen supplementation, and recommend daily aspirin 162 mg Follow-up with Dr. Sim in 1 week. Please call his office to schedule a follow-up telephone appointment. You are also noted to have severe hypertension, refills are sent for your lisinopril, carvedilol, and hydrochlorathiazide. Diet: AHA Activity: Ad rodriguez Followup: Jignesh Sim MD [ACTIVE - CAN ADMIT] - 1 Week (Call for appointment.) Matthias Andino DO [Primary Care Provider] - 1 Week (call for appointment ) Time spent managing pt's care (in minutes): 45
[2021-06-06 13:39] VITALS: O2SAT 91
[2021-06-06 14:17] VITALS: TEMP 97.7
[2021-06-06] MEDS: HYDRALAZINE HCL 20 MG/ML VIAL IV PRN (14:55)
[2021-06-06] MEDS ORDERED: hydroCHLOROthiazide 25 MG TAB PO ONE (15:00)
[2021-06-06 15:39] VITALS: BP 172/88
== END 2021-06-06 15:55 | disposition home or self-care (01) | DRG 177 ==
LOC: ER 11:53 → ERHOLD 18:57 → 4TH 06-04 23:10
PROVIDERS: ADMIT Hospitalist; ATTEND Hospitalist
DX: U07.1 COVID-19 (principal); J12.82 Pneumonia due to coronavirus disease 2019; J96.01 Acute respiratory failure with hypoxia; R04.2 Hemoptysis; I10 Essential (primary) hypertension
CPT/HCPCS: 36415; 71045; 71275; 80048; 80053; 80061; 80076; 81003; 81015; 82248; 82728; 83605; 83690; 83735; 84145; 84439; 84443; 84484; 85025; 85379; 85610; 85730; 86140; 87040; 87070; 87081; 87804; 93005; 94760; 96361; 96374; 99284; J0360; J1650; J1940; J2405; J2920; J2930; J7040; Q9967